=== PATIENT | female | born 1980 | race Caucasian/White ===

== ENCOUNTER → 2024-11-02 09:54 | Outpatient (REF) | payer OTHER, SELFPAY | LOC: HWWDC 09:54 | PROVIDERS: ATTENDING PHYSICIAN Nurse Practitioner Family | DX: Z12.31 Encounter for screening mammogram for malignant neoplasm of breast (principal) | CPT/HCPCS: 77063; 77067 ==

== ENCOUNTER 2025-05-05 08:41 | Emergency (ER) | payer OTHER, SELFPAY ==
[2025-05-05 08:41] VITALS: BMI 28.1
[2025-05-05 08:45] VITALS: BP 141/113
--- NOTE | 2025-05-05 09:02 | ED.GENMED ---
History of Present Illness
General
Chief Complaint: Eye Problems
Time Seen by Provider: 05/05/25 09:02
History of Present Illness
History of Present Illness:
FOCUSED PAST MEDICAL HISTORY
- no significant past medical history but did have sinuplasty in the past
REVIEW OF OLD RECORDS
- I reviewed records, the patient had related visits in the past
Note:
CHIEF COMPLAINT(S)
Swollen eye with suspicion of allergic reaction and possible sty.
HISTORY OF PRESENT ILLNESS
The patient, a 44-year-old female, presents with swelling and discomfort of the eye that began after accidental exposure to sublingual allergy drops. The patient usually manages her allergies with sublingual drops daily instead of weekly injections.
The incident occurred while attempting to handle a broken bottle of allergy drops. The patient initially noticed what felt like a sty developing on the lower eyelid on Thursday night, which was described as bothersome, along with some eye
scratching. The following morning, the patient awoke with increased swelling below the eye, which was described as significantly worse in appearance. The upper part of the eye is usually affected in her previous allergic episodes. This time, it
became swollen and painful, particularly the area described as 'like I got punched in the face.' The patient describes this as annoying and painful, although not itchy.
Upon examination, theres a history of dog hair causing mild eye irritation and swelling in the past, primarily in the upper eyelid. The current swelling includes swelling beneath the eye. The patient denied other symptoms such as fever or
significant itchiness at present.
PAST MEDICAL AND SURGICAL HISTORY
The patient has a history of allergies. There was a mention of the current use of sublingual allergy drops instead of allergy shots. Prior experience with prednisone was noted, and the patient tolerates it well.
REVIEW OF SYSTEMS
- Eyes: Swelling beneath the eye, previously described as starting like a sty. Annoying and painful, but not currently itchy.
- General: Denies fever. No further systemic symptoms were reported.
PHYSICAL EXAM
General: Alert, no acute distress.
Skin: Warm, dry. See below
Head: Normocephalic, atraumatic.
Neck: Supple, trachea midline.
Eye, Ears, Nose, Mouth, and Throat: There is infraorbital edema and erythremia to the left eye but no significant warmth, there is some palpable preauricular lymphadenopathy which is tender, there is moderate conjunctival injection to the left eye
most notably inferiorly, there is no foreign body, no fluorescein uptake, pH 7.0
Cardiovascular: Normal peripheral perfusion, No edema.
Respiratory: Respirations are non-labored.
Gastrointestinal: Abdomen nondistended.
Back: Normal range of motion, Normal alignment.
Musculoskeletal: Normal range of motion, normal strength.
Neurological: Alert and oriented to person, place, time, and situation, No focal neurological deficit observed.
Psychiatric: Cooperative, appropriate mood & affect.
PLAN
1. Irrigation of the affected eye with saline to remove potential allergens.
2. Prescription of erythromycin ophthalmic ointment to address the suspected sty or eye infection.
3. Initiation of oral prednisone to address the swelling and possible allergic reaction.
4. Discussed the possibility of periorbital cellulitis, but no specific antibiotics were prescribed at this time.
5. Patient advised to follow up if symptoms worsen or if new symptoms such as fever develop.
6. Medications to be sent to patients pharmacy.
DIFFERENTIAL DIAGNOSIS
The Differential Diagnosis includes, in no particular order and is not limited to:
1. Allergic conjunctivitis
2. Sty (Hordeolum)
3. Periorbital cellulitis
4. Contact dermatitis
5. Subconjunctival hemorrhage
6. Dacryocystitis
7. Chalazion
8. Blepharitis
9. Sinusitis-related periorbital edema
10. Orbital cellulitis.
Disposition:
SUMMARY OF ENCOUNTER
The patient, a 44-year-old female, presented with significant swelling and discomfort of the left eye after accidental exposure to sublingual allergy drops. Following an evaluation, it was determined that the symptoms might be due to an allergic
reaction or possible sty development. The absence of fluorescein uptake and foreign body eliminated the concern for other ocular problems.
DISPOSITION
Discharge.
ASSESSMENT
The patients symptoms are suggestive of an allergic reaction with potential contribution from a sty. Periorbital cellulitis was considered but was less likely.
PLAN
The plan includes conducting irrigation of the eye to remove any potential allergens and prescribing erythromycin ophthalmic ointment to manage the suspected sty or eye infection. A prescription for oral prednisone was also provided to manage
swelling due to the allergic reaction. In addition, cephalexin is prescribed to address any potential bacterial component related to periorbital cellulitis.
MEDICATION RECONCILIATION
- Erythromycin ophthalmic ointment.
- Prednisone.
- Cephalexin.
MEDICAL DECISION MAKING
-Number and Complexity of Problems Addressed:
Chronic conditions affecting care: History of allergies. Differential diagnosis includes allergic conjunctivitis, a sty (hordeolum), and periorbital cellulitis contributing to current symptoms.
-Data:
Category 1: Fluorescein test administered, showing no uptake, excluding certain ocular injuries or foreign bodies.
-Risk: Prescription medication was prescribed with the provision of cephalexin, erythromycin ophthalmic ointment, and prednisone to manage the allergic and possible infectious components.
DIAGNOSIS
- Allergic conjunctivitis (ICD-10: H10.1)
- Possible Periorbital cellulitis (ICD-10: H05.011)
Phy Exam
Physical Exam
Physical Exam:
See HPI
Course
Orders/Labs/Results
Orders:
Orders
05/05/25 09:26
Erythromycin (Ilotycin) [Erythromycin 0.5% Ophthalmic Ointment] See Dose Instructions OPHTH NOW STA
Prednisone [Deltasone] 50 mg PO NOW STA
Vital Signs
Initial and Last Documented VS:
Initial Vital Signs
Temp Pulse Resp BP Pulse Ox
36.9 C 104 18 141/113 100
05/05/25 08:45 05/05/25 08:45 09/19/25 08:45 05/05/25 08:45 05/05/25 08:45
Last Documented Vital Signs
Temp Pulse Resp BP Pulse Ox
37.1 C 85 16 122/78 99
05/05/25 09:33 05/05/25 09:33 05/05/25 09:33 05/05/25 09:33 05/05/25 09:33
*Pulse Oximetry
SaO2: 100
Oxygen Mode of Delivery: Room air
Patient hypoxic: no
*Critical Care Note
Total Time (30-74mins, 75-104mins- exclusive of procedures): Not Applicable
ED Attending Note
-
Portions of this chart may have been created with voice recognition software.� Occasional wrong word or��sound alike� substitutions may have occurred due to the inherent limitations of voice recognition software.
Discharge Plan
Departure
Patient Disposition: Home (Routine Discharge)
Date of Disposition: 05/05/25
Time of Disposition: 09:27
Patient with high blood pressure during this ER visit?: Yes
Discharge Problem:
Allergic reaction
Instructions: Allergic reaction - ED (DC), BLOOD PRESSURE
Prescriptions:
New
prednisone 50 mg tablet
50 mg PO DAILY Qty: 4 0RF
cephalexin 500 mg tablet
500 mg PO TID Qty: 21 0RF
No Action
biotin 10 mg Tablet
10 mg PO DAILY
cetirizine [Zyrtec] 10 mg Tablet
10 mg PO DAILY
pseudoephedrine HCl [Sudafed] 60 mg Tablet
60 mg PO ONCE
Zepbound 12.5 mg/0.5 mL Solution
12.5 mg SC WEEKLY
Rx Instructions:
mondays
Activity Restrictions/Additional Instructions:
Next dose of steroids tomorrow. Use the erythromycin ointment several times a day. I also sent a prescription for Keflex to the pharmacy in case this could be infectious related.
Interventions
Interventions:
*Risk Screen - Suicide Last Done: 05/05/25 08:45
*General Assessment Last Done: 05/05/25 08:45
*Neglect/Abuse Screening Last Done: 05/05/25 08:45
*ED- Fall Risk Assessment Last Done: 05/05/25 08:58
*Nursing Disposition Last Done: 05/05/25 09:33
Discharge Date and Time
Print Language: [place]
[2025-05-05] MEDS: DELTASONE 50 MG PO (09:30)
[2025-05-05] MEDS: ERYTHROMYCIN 0.5% OPHTHALMIC OINTMENT 1 APPLIC OPHTH (09:32)
[2025-05-05 09:33] VITALS: BP 122/78
== END 2025-05-05 09:30 | disposition home or self-care (01) ==
LOC: EMR 08:41
PROVIDERS: EMERGENCY PHYSICIAN Emergency Medicine; FAMILY PHYSICIAN Nurse Practitioner Family
DX: T78.40XA Allergy, unspecified, initial encounter (principal); X58.XXXA Exposure to other specified factors, initial encounter
CPT/HCPCS: 99283